=== PATIENT | male | born 1995 | race Caucasian/White ===

== ENCOUNTER 2017-10-02 09:48 | Emergency (ER) | payer OTHER ==
[2017-10-02] MEDS ORDERED: SODIUM CHLORIDE 0.9% 500 ML IV ONE (10:11)
[2017-10-02] MEDS ORDERED: ONDANSETRON HCL IV 4 MG/2 ML VIAL IV ONE (10:11)
--- NOTE | 2017-10-02 10:17 | Emergency Department Record ---
History of Present Illness - General Chief Complaint: Abdominal Pain Stated Complaint: ABD PAIN Time Seen by Provider: 10/02/17 10:07 Source: Patient Mode of Arrival: Ambulatory Limitations: No limitations - History of Present Illness Initial Comments: The patient is here due to AP for 24 hours. The onset was yesterday and it did worsen today. The pain is all over and sharp and worse with any movement and bending. He denies any nausea, vomiting, dysuria, fever, chills, or CP but he has had mild back pain at times. The patient denies any hx of any abdominal surgeries. MD Complaint: Abdominal pain Onset/Timin -: Days(s) Location: Diffuse Radiation: Back Severity scale (1-10): 5 Quality: Sharp Consistency: Intermittent Improves With: Nothing Worsens With: Nothing Associated Symptoms: Diarrhea - Related Data Previous Rx's Medication Instructions Recorded Naproxen [Naprosyn] 250 mg PO BID #14 tablet 10/02/17 Sucralfate [Carafate] 1 gm PO QID #28 tablet 10/02/17 Allergies Allergy/AdvReac Type Severity Reaction Status Date / Time No Known Drug Allergies Allergy Verified 10/02/17 09:58 Travel Screening - Travel/Exposure Within Last 30 Days Have you traveled within the last 30 days?: No Review of Systems Constitutional: Denies: Chills, Fever Eyes: Denies: Eye discharge ENT: Denies: Congestion Respiratory: Denies: Cough Past Medical History - SOCIAL HISTORY Smoking Status: Never smoker Alcohol Use: Occasional Drug Use: None - RESPIRATORY Hx Respiratory Disorders: Yes Hx Asthma: Yes - CARDIOVASCULAR Hx Cardio Disorders: No - NEURO Hx Neuro Disorders: No - GI Hx GI Disorders: No - Hx Genitourinary Disorders: No - ENDOCRINE Hx Endocrine Disorders: No - MUSCULOSKELETAL Hx Musculoskeletal Disorders: Yes Comment:: Estrellita Kim knee - PSYCH Hx Psych Problems: Yes Hx Anxiety: Yes - HEMATOLOGY/ONCOLOGY Hx Hematology/Oncology Disorders: No Family Medical History Any Significant Family History?: Yes Hx Cancer: Father, Mother Physical Exam - General General Appearance: Alert, Oriented x3, Cooperative, No acute distress - Head Head exam: Atraumatic, Normocephalic, Normal inspection - Eye Eye exam: Normal appearance, PERRL - Neck Neck exam: Normal inspection, Full ROM. negative: Tenderness - Respiratory Respiratory exam: Normal lung sounds bilaterally. negative: Respiratory distress - Cardiovascular Cardiovascular Exam: Regular rate, Normal rhythm, Normal heart sounds - GI/Abdominal GI/Abdominal exam: Soft, Tenderness (There is mild tenderness in all 4 quads.). negative: Guarding, Hernia, Rebound, Rigid - Extremities Extremities exam: Normal inspection, Full ROM, Normal capillary refill. negative: Tenderness - Neurological Neurological exam: Alert, Normal gait. negative: Abnormal gait, Motor sensory deficit Course Vital Signs 10/02/17 09:54 Temperature 97.7 F Pulse Rate 100 H Respiratory 20 Rate Blood Pressure 116/79 Pulse Ox 98 - Reevaluation(s) Reevaluation #1: The patient is ambulating normally but is having more flank pain now. We will order a CT scan to R/O stone. 10/02/17 11:40 Reevaluation #2: The patient is doing very well at this time. He is resting comfortably in no pain. I did explain the CT report and the need for f/u. 10/02/17 12:40 Medical Decision Making - Data Complexity MDM Data: Labs Ordered and/or Reviewed, X-Ray Ordered and/or Reviewed - Lab Data Result diagrams: 10/02/17 10:15 10/02/17 10:15 - Radiology Data Radiology results: Report reviewed (CT: Neg kidney stone, hydro or appendicitis. Poss mild small bowel dilation due to ileus. No obstruction.) Disposition Disposition: Discharge Clinical Impression: Abdominal pain Qualifiers: Abdominal location: unspecified location Qualified Code(s): R10.9 - Unspecified abdominal pain Disposition: Home, Self-Care Condition: (2) Stable Instructions: Constipation (ED), Abdominal Pain (ED) Additional Instructions: Please take an OTC laxative to get your bowels moving. Please take the Naprosyn and Carafate as directed. See your family doctor early next week for recheck. Return to the ER for any worsening pain, fever, or vomiting. Prescriptions: Naproxen [Naprosyn] 250 mg PO BID #14 tablet Sucralfate [Carafate] 1 gm PO QID #28 tablet Forms: Patient Portal Access Time of Disposition: 12:43 Quality - Quality Measures Quality Measures: N/A - Blood Pressure Screening View Details: Yes Does Patient Have Any of the Following: No Blood Pressure Classification: Pre-Hypertensive BP Reading Systolic Measurement: 132 Diastolic Measurement: 63 Screening for High Blood Pressure: < Pre-Hypertensive BP, F/U Documented > [ [id number]] Pre-Hypertensive Follow-up Interventions: Referral to alternative/primary care provider.
[2017-10-02 10:32] LABS: BASO % 0.3 % (0-6); EOS % 2.9 % (0-6); GRAN % 65.4 % (47-80); HEMATOCRIT 43.7 % (42.0-52.0); HEMOGLOBIN 15.2 gm/dl (14.0-18.0); LYMPH % 19.7 % (16-45); MEAN CELL VOLUME 88.6 fl (81-97); MEAN CORPUSCULAR HEMOGLOBIN 30.8 pg (27-33); MEAN CORPUSCULAR HGB CONC 34.8 g/dl (32-36); MEAN PLATELET VOLUME 9.5 fl (7.4-10.4); MONO % 11.7 % (0-9); PLATELET COUNT 305 K/uL (130-400); RED BLOOD COUNT 4.93 M/uL (4.40-5.70); RED CELL DISTRIBUTION WIDTH 12.5 % (11.5-14.5); WHITE BLOOD COUNT W/O DIFF 7.6 K/uL (4.2-12.2)
[2017-10-02 10:42] LABS: BLOOD UREA NITROGEN 13 mg/dL (6-20); CREATININE 0.7 mg/dL (0.7-1.2); EST GLOMERULAR FILTRATION RATE > 60 mL/min
[2017-10-02 10:43] LABS: TOTAL PROTEIN 6.8 g/dL (6.6-8.7)
[2017-10-02] MEDS ORDERED: SUCRALFATE 1 G/10 ML UD PO ONE (10:44)
[2017-10-02 10:45] LABS: GLUCOSE,RANDOM 117 mg/dL (74-109)
[2017-10-02 10:47] LABS: ALBUMIN 4.2 g/dL (4.0-5.0); ALT/SGPT 31 U/L (<41); AST/SGOT 28 U/L (10.0-50.0)
[2017-10-02 10:48] LABS: ALKALINE PHOSPHATASE 58 U/L (40-129); LIPASE 36 U/L (13-60)
[2017-10-02 10:50] LABS: BILIRUBIN,DIRECT < 0.2 mg/dL (0-0.3)
[2017-10-02] MEDS ORDERED: KETOROLAC 30 MG/ML VIAL IVP ONE (11:32)
[2017-10-02 11:46] LABS: URINE APPEARANCE CLEAR; URINE BILIRUBIN NEGATIVE (NEGATIVE); URINE BLOOD NEGATIVE (NEGATIVE); URINE COLOR YELLOW; URINE GLUCOSE (UA) NEGATIVE (NEGATIVE); URINE KETONE NEGATIVE (NEGATIVE); URINE LEUKOCYTE ESTERASE NEGATIVE (NEGATIVE); URINE NITRITE NEGATIVE (NEGATIVE); URINE PROTEIN NEGATIVE (NEGATIVE); URINE UROBILINOGEN 0.2 E.U./dL (0.20 - 1.00)
--- NOTE | 2017-10-03 15:03 | CT SCAN REPORT ---
EXAM: EMERGENCY CT OF THE ABDOMEN AND PELVIS WITHOUT CONTRAST HISTORY: DIFFUSE ABDOMINAL PAIN RADIATING TO BILATERAL FLANKS FOR TWO DAYS. TECHNIQUE: Axial CT scan of the abdomen and pelvis was performed without oral or IV contrast. Comparison: CT of the abdomen and pelvis dated 09/05/10. FINDINGS: No intrarenal calculi identified on either side. No hydronephrosis or hydroureter identified on either side. As such it is somewhat difficult to follow the entire course of both ureters in their nondilated state throughout the retroperitoneum and pelvis, but no definite ureteral calculus seen on either side and no bladder calculus evident. No calcified gallstones are seen within the gallbladder. Evaluation of the bowel and viscera is very limited without oral or IV contrast. Given this limitation, no definite hepatic, splenic, adrenal, pancreatic, or renal mass identified on either side. A portion of the hepatic flexure of the colon has become interposed between the liver and lateral border of the right kidney superiorly since the prior examination. The appendix is visualized and appears of normal caliber with no appendicitis evident. Slight hyperdensity in a portion of the appendix may just represent concentrated enteric content rather than a small appendicolith. There are some mildly dilated loops of small bowel seen scattered throughout the abdomen. The terminal ileum itself is nondilated. This small bowel distention is nonspecific , but early small bowel obstruction cannot be excluded. No free intraperitoneal air or free intraperitoneal fluid evident. IMPRESSION: 1. NO DEFINITE URINARY TRACT CALCULI OR HYDRONEPHROSIS EVIDENT. 2. NO APPENDICITIS SEEN AND NO FREE AIR OR FREE FLUID EVIDENT. 3. THERE ARE SOME MILDLY DILATED SMALL BOWEL LOOPS, NONSPECIFIC. EARLY SMALL BOWEL OBSTRUCTION CANNOT BE EXCLUDED. FOLLOW-UP ABDOMEN PLAIN FILM SERIES MAY BE USEFUL TO SEE IF THERE IS EVIDENCE OF PROGRESSIVE SMALL BOWEL DISTENTION. JOB NUMBER: [id number] [facility]
== END 2017-10-02 12:57 | disposition home or self-care (01) ==
LOC: ER 09:48
DX: R10.84 Generalized abdominal pain (principal); R19.7 Diarrhea, unspecified; M54.5 Low back pain
CPT/HCPCS: 99284 ×2; 96374; 96375; 96361; 83690; 85025; 80076; 80048; 81003; 74176; J1885; J2405